=== PATIENT | male | born 1945 | race African-American/Black ===

== ENCOUNTER 2018-01-23 05:35 | Inpatient (IN) | payer MEDICARE ==
[2018-01-23 06:30] LABS: Anion Gap 14 mmol/L (10-20); BUN (Urea Nitrogen) 27 mg/dL (8.4-25.7); Calc. Creatinine Clearance 0 mL/min (70-130); Calcium 9.3 mg/dL (7.8-10.44); Carbon Dioxide 36 mmol/L (23-31); Chloride 93 mmol/L (98-107); Estimated GFR-MDRD 45; Glucose 97 mg/dL (83-110); Sodium 140 mmol/L (136-145)
[2018-01-23 06:37] LABS: CKMB 4.2 ng/mL (0-6.6); Troponin I 0.057 ng/mL (< 0.028)
--- NOTE | 2018-01-23 08:12 | HP ---
PRIMARY CARE PHYSICIAN: Dr. Kamran Velazquez CHIEF COMPLAINT: Shortness of breath. HISTORY OF PRESENT ILLNESS: The history of present illness is taken almost entirely from review of [facility] emergency room records which are limited as well. The patient is currently extremely sleepy and c an only answer 1 or 2 questions before falling back to sleep and therefore it is very difficult to ob tain a history. Mr. Esteban is a 72-year-old gentleman that has a history of hypertension, atrial f ibrillation and chronic systolic heart failure. He had an echo back in 2014 and at that time, his ej ection fraction was 20-25%. He says that on night, he began getting short of breath, the ex act details of which are very limited. He does say that he was having trouble breathing, but says he did not wake up through the night short of breath. He was able to tell me he does have to sleep pro pped up, but he kept falling asleep when I tried to get more details on how many pillows he has to s leep on. He does not endorse any leg swelling. He denies having any chest pain. He denies having a ny palpitations. Other than that, no other history is obtainable. He was evaluated in the emergency room and it was reported that his proBNP was elevated at 1045. Chest x-ray showed cardiomegaly with increased pulmonary vascular markings and he is being admitted for further evaluation and treatment. REVIEW OF SYSTEMS: Unobtainable due to the patient's severe drowsiness. PAST MEDICAL HISTORY: Significant for chronic systolic heart failure, hypertension, atrial fibrillat ion. It is noted in the records that he has refused anticoagulation in the past. It is also noted i n the records that he has refused workup of the heart failure such as cardiac catheterization. Also, there was a mention in the records that he was diagnosed with diabetes mellitus type 2 and had been on metformin. PAST SURGICAL HISTORY: Right femur fracture. ALLERGIES: No known drug allergies. SOCIAL HISTORY: The patient managed to tell me he does not smoke or drink. FAMILY HISTORY: Unknown. MEDICATIONS: These will need to be reconciled. The emergency room records stated amlodipine 10 mg d aily, furosemide 40 mg daily, potassium chloride 10 mEq daily, Coreg 12.5 mg daily, aspirin 81 mg a d ay. PHYSICAL EXAMINATION: GENERAL: He is extremely drowsy, but arousable. He is well-developed, well-nourished. He appears t o be in no acute distress. VITAL SIGNS: Blood pressure was 144/98, heart rate 77, respiratory rate of 18, temperature is 97.7. HEENT: Pupils are equal, round, and reactive. Extraocular muscles are intact. Sclerae are anicteri c. Throat no erythema, no exudates. NECK: No adenopathy, no bruits. LUNGS: He has got bibasilar rales. CARDIOVASCULAR: Heart rate is irregular, heart rhythm is irregular. There were no murmurs, clicks o r rubs. However, the heart sounds are a bit distant. ABDOMEN: Obese, positive for bowel sounds. No tenderness. EXTREMITIES: He has got chronic venous stasis changes. NEUROLOGIC: Difficult to assess, but he is moving all extremities. ASSESSMENT AND PLAN: 1. This is a pleasant 72-year-old gentleman that presents with shortness of breath. I suspect it ma y be multifactorial; 1) due to congestive heart failure exacerbation and I suspect he may have some d egree of obesity hypoventilation syndrome as he is extremely drowsy and I am concerned that he may maldonado ve some hypercapnia as well. He will be admitted to the IMCU as I am concerned that he may require B iPAP, placed on IV Lasix for diuresis. We will get an echocardiogram to assess his current ejection fraction and will need to reconcile his other medications. 2. Atrial fibrillation, currently his rate is controlled once he is more alert, we can verify that petey merida does not want anticoagulation. 3. Possible diabetes mellitus. He will be placed on a sliding scale insulin and we will need to re concile as medications. 4. Hypertension, currently his blood pressure is within reasonable range. Once again, we will need to reconcile as medications and restart his usual antihypertensive medications once these are known. Further recommendations to follow.
[2018-01-23 08:27] LABS: pH, Arterial 7.28 (7.35-7.45)
[2018-01-23 08:28] LABS: Actual Bicarbonate (HCO3a) 39.1 mEq/L (22-28); Base Excess (BEa) 9.2 mEq/L (-2.0 to +3.0); CO2 Tension 84.3 mmHg (35.0-45.0); Calcium, Ionized 1.1 mmol/L (1.12-1.30); Carboxyhemoglobin (COHb) 1.3 gm% (0.0-3.0); Hemoglobin (Hb) 13.1 g/dL (14.0-18.0); O2 Tension (PaO2) 79.2 mmHg (> 70.0); Potassium - ABG Lab 2.9 mmol/L (3.70-5.30)
[2018-01-23 08:30] LABS: Analyzer IN Cardio ER; Puncture Site L.R.
[2018-01-23 08:31] LABS: ALV-art Gradient 15.065 (0-20)
[2018-01-23] MEDS ORDERED: Ondansetron HCl/PF 4 MG/2 ML Vial IVP PRN (09:11)
[2018-01-23] MEDS ORDERED: Acetaminophen 325 MG TAB PO PRN ×2 (09:11→10:19)
[2018-01-23] MEDS ORDERED: Ondansetron ODT 4 MG TAB SL PRN (09:11)
[2018-01-23] MEDS ORDERED: HumaLOG 300 UNITS/3 ML VIAL SC PRN ×2 (10:19)
[2018-01-23] MEDS ORDERED: hydrALAZINE 20 MG/ML VIAL SLOW IVP PRN (10:19)
[2018-01-23] MEDS ORDERED: Dextrose 50% Abboject 50 ML SYRINGE SLOW IVP PRN (10:19)
[2018-01-23] MEDS ORDERED: Mag-Al 1200 mg/1200 mg/30 ML UDCUP PO PRN (10:19)
[2018-01-23] MEDS ORDERED: Dextrose 5% in Water 1,000 ML IV PRN (10:19)
[2018-01-23 10:20] LABS: Troponin I 0.047 ng/mL (< 0.028)
[2018-01-23] MEDS ORDERED: Heparin 5,000 UNITS/ML VIAL SC SCH (10:30)
[2018-01-23] MEDS ORDERED: Famotidine 20 MG TAB PO SCH (10:30)
--- NOTE | 2018-01-23 11:16 | CON ---
DATE OF CONSULTATION: 01/23/2018 HISTORY: Joe Esteban is a 72-year-old gentleman whose history is obtained from talking to his . He normally seeks attention at doctors out of [place]. He presented to the [facility] ER with marked shortness of breath, coughing, generalized anasarca. His states his le gs were swollen. He was coughing whitish sputum, could not breathe. X-ray shows extensive bilateral interstitial infiltrate consistent with congestive heart failure. He says on most days he can walk about 50 feet without getting markedly short of breath. Apparently no history of alcohol or tobacco abuse. Extremely poor historian. Both the , the patient unable to give adequate history. PAST MEDICAL HISTORY: Pertinent for borderline diabetes, takes no treatment, history of congestive h eart failure, atrial fibrillation, hypertension, has had previous cardioversion done in the past in [facility]. PRIMARY CARE PHYSICIAN: Apparently is in [place]. PAST SURGICAL HISTORY: Otherwise a right femur fracture. ALLERGIES: None. MEDICATIONS: A list of medicine from home includes presumably metolazone 5, Lasix 40, Coreg 25, col chicine, Capoten 25, aspirin. He is presently started on Lasix 40 twice a day, hydralazine, insulin. He is on BiPAP. 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 REVIEW OF SYSTEMS: Ten point negative. PHYSICAL EXAMINATION: VITAL SIGNS: His sats are 95% on room air. Pulse 74, respirations 28, sats 92, blood pressure is 14 0/101. CHEST: Chest revealed decreased breath sounds, no wheezing. CARDIAC: Normal S1, S2, no gallops. ABDOMEN: Soft. No masses. IMPRESSION: 1. Acute cardiorespiratory failure. 2. Congestive heart failure. 3. Atrial fibrillation. 4. Renal failure. 5. Obesity. 6. Probably sleep apnea. PLAN: Discontinue BiPAP. Treat as needed. PT and supportive care, neb treatments. We will follow. This is a consultation note, 70 minutes of which 50% spent in direct patient care. Please note his BNP is 1052. PO2 is 79, pCO2 of 84, pH 7.29, on 2 liters nasal O2. Platelet count i s normal. His creatinine was 1.80. We will follow.
[2018-01-23 11:18] LABS: Digoxin Less than 0.15 ng/mL (0.8-2.0)
[2018-01-23] MEDS: cefTRIAXone\\ROCEPHIN 1 GM in Sodium Chloride 0.9% 100 ML IVPB SCH (11:59)
[2018-01-23] MEDS: Furosemide 40 MG/4 ML VIAL SLOW IVP SCH (14:58)
[2018-01-23] MEDS: Heparin 5,000 UNITS/ML VIAL SC SCH ×2 (16:49→20:40)
[2018-01-23] MEDS: guaiFENesin ER 600 MG TAB PO SCH (20:44)
[2018-01-23] MEDS: Carvedilol 25 MG TAB PO SCH (20:44)
[2018-01-23] MEDS: Colchicine 0.6 MG TAB PO SCH (20:44)
[2018-01-24 04:28] LABS: Anion Gap 15 mmol/L (10-20); BUN (Urea Nitrogen) 24 mg/dL (8.4-25.7); Calc. Creatinine Clearance 73 mL/min (70-130); Calcium 8.6 mg/dL (7.8-10.44); Carbon Dioxide 37 mmol/L (23-31); Chloride 93 mmol/L (98-107); Estimated GFR-MDRD 53; Glucose 101 mg/dL (83-110); Sodium 142 mmol/L (136-145)
[2018-01-24 04:31] LABS: Potassium 2.8 mmol/L (3.5-5.1)
[2018-01-24 04:35] LABS: Band 4 % (5-11); Eosinophils 1 % (0-10); Lymphocytes 14 % (21-51); MDiff Complete? YES; Mean Corpuscular HGB CONC 31.8 g/dL (32.0-36.0); Mean Corpuscular Hemoglobin 26.7 pg (27.0-31.0); Mean Corpuscular Volume 83.8 fL (78.0-98.0); Mean Platelet Volume 9.1 fL (7.4-10.4); Monocytes 14 % (0-10); Neutrophil 67 % (42-75); Nucleated RBC 1 % (0); PLT Morphology Comment Appears Adequate; Platelet Count 164 thou/uL (130-400); RBC Distribution Width 15.2 % (11.5-14.5); RBC Morphology Normal; Red Blood Cell (RBC) Count 4.88 mill/uL (4.70-6.10); White Blood Cell (WBC) Count 6.4 thou/uL (4.8-10.8)
[2018-01-24] MEDS ORDERED: Potassium Chloride 20 MEQ TAB PO SCH (05:00)
[2018-01-24] MEDS: Furosemide 40 MG/4 ML VIAL SLOW IVP SCH ×2 (05:20→14:30)
[2018-01-24] MEDS: Amlodipine 10 MG TAB PO SCH (08:09)
[2018-01-24] MEDS: Colchicine 0.6 MG TAB PO SCH ×2 (08:11→20:56)
[2018-01-24] MEDS: Carvedilol 25 MG TAB PO SCH ×2 (08:11→21:29)
[2018-01-24] MEDS: Heparin 5,000 UNITS/ML VIAL SC SCH ×3 (08:12→20:56)
[2018-01-24] MEDS: guaiFENesin ER 600 MG TAB PO SCH ×2 (08:12→20:56)
[2018-01-24] MEDS: Famotidine 20 MG TAB PO SCH (08:12)
[2018-01-24] MEDS: Metolazone 5 MG TAB PO SCH (08:13)
[2018-01-24] MEDS ORDERED: Prevnar 13-Val Conj/PF 0.5 ML SYRINGE IM ONE (09:00)
[2018-01-24 09:52] VITALS: BMI 36.6
--- NOTE | 2018-01-24 10:20 | PDOC.PN ---
- Subjective Encounter Start Date: 01/24/18 Encounter Start Time: 10:17 Mr. Esteban was seen today in follow-up of CHF exacerbation. He is now much more alert. He says he is breathing much better. He admits that he had missed about 2 weeks of all of his medications when he went on a trip to [facility]. When he got back he started back on his medications, but by that time he was coughing and short of breath. He also admits that his Primary Care Provider sent him to have a sleep study about year ago. He did it, and was recommended to use a CPAP machine. He says it was too big, and he does not use it. - Objective Resuscitation Status: Resuscitation Status FULL:Full Resuscitation MAR Reviewed: Yes Vital Signs & Weight: Vital Signs (12 hours) Temp Pulse Resp BP BP Pulse Ox 01/24/18 08:30 98.2 F 102 H 22 H 97 01/24/18 08:09 102 H 131/79 01/24/18 08:01 95 01/24/18 07:58 105 H 24 H 95 01/24/18 07:32 98.2 F 89 22 H 144/94 H 96 01/24/18 04:50 98.3 F 77 25 H 153/88 H 96 01/24/18 02:26 70 19 124/84 94 L 01/24/18 00:19 96 01/24/18 00:17 97.0 F L 63 25 H 138/86 91 L 01/24/18 00:05 75 25 H 92 L 01/24/18 00:04 74 27 H 94 L Weight Admit Weight 270 lb Weight 270 lb 6 oz I&O: 01/23/18 01/24/18 01/25/18 06:59 06:59 06:59 Intake Total 920 Output Total 2100 Balance -1180 Result Diagrams: 01/24/18 03:39 01/24/18 03:39 Additional Labs: Accuchecks 01/24/18 01/23/18 01/23/18 06:03 19:56 17:46 POC Glucose 143 H 109 124 H 01/23/18 10:48 POC Glucose 86 Phys Exam - Physical Examination HEENT: PERRLA Respiratory: no wheezing, no rales, no rhonchi, clear to auscultation bilateral Cardiovascular: RRR, no significant murmur, no rub Gastrointestinal: soft, non-tender, positive bowel sounds Musculoskeletal: no edema + chronic venous stasis changes Neurological: non-focal Dx/Plan (1) Acute on chronic respiratory failure with hypoxia and hypercapnia Code(s): J96.21 - ACUTE AND CHRONIC RESPIRATORY FAILURE WITH HYPOXIA; J96.22 - ACUTE AND CHRONIC RESPIRATORY FAILURE WITH HYPERCAPNIA Status: Acute (2) Afib Code(s): I48.91 - UNSPECIFIED ATRIAL FIBRILLATION Status: Acute (3) Type 2 diabetes mellitus Status: Acute (4) Acute exacerbation of congestive heart failure Code(s): I50.9 - HEART FAILURE, UNSPECIFIED Status: Chronic (5) Hypertension Code(s): I10 - ESSENTIAL (PRIMARY) HYPERTENSION Status: Chronic (6) Morbid obesity Code(s): E66.01 - MORBID (SEVERE) OBESITY DUE TO EXCESS CALORIES Status: Chronic - Plan * Acute on chronic systolic heat failure- continue IV Lasix, and re-started Metolazone * replace potassium as needed * Echo is pending * Sleep Apnea- I encouraged patient to follow-up with sleep study results, and get the CPAP. I explained the risks associated with untreated sleep apnea * AFIB- heart rate is controlled- he has refused anticoagulation * HTN- blood pressure is stable * DM- blood glucose is stable.
[2018-01-24 10:39] LABS: Hemoglobin 12.6 g/dL (14.0-18.0)
--- NOTE | 2018-01-24 14:17 | PRG ---
DATE OF SERVICE: 01/24/2018 SUBJECTIVE: Mr. Esteban this morning awake, alert, responsive. He said he wants to go home. OBJECTIVE: VITAL SIGNS: His sats are 97% on 3 liters. Respirations 22, pulse 102, temperature 98, blood pressu re 144/94. CHEST: Bilateral crackles. CARDIAC: Normal S1, S2. No gallops or masses. LABORATORY DATA: Creatinine 1.57. White count 6000, H&H 13 and 40. IMPRESSION: 1. Respiratory failure. 2. Morbid obesity. 3. Sleep apnea. 4. Chronic obstructive pulmonary disease. 5. Congestive heart failure. PLAN: The patient is clean and ready to go home. He needs ongoing cardiac input, PT and supportive care. Nocturnal CPAP.
[2018-01-24] MEDS: cefTRIAXone\\ROCEPHIN 1 GM in Sodium Chloride 0.9% 100 ML IVPB SCH (20:54)
[2018-01-25 04:56] LABS: #Basophils 0.1 thou/uL (0.0-0.2); #Eosinphils 0.2 thou/uL (0.0-0.7); #Lymphocytes 0.9 thou/uL (1.20-3.40); #Monocytes 0.9 thou/uL (0.11-0.59); #Neutrophils 4.2 thou/uL (1.40-6.50); %Basophils 0.8 % (0.0-1.0); %Eosinophils 2.9 % (0.0-10.0); %Lymphocytes 14.5 % (21.0-51.0); %Monocytes 14.9 % (0.0-10.0); %Neutrophils 66.9 % (42.0-75.0); Hemoglobin 11.6 g/dL (14.0-18.0); Mean Corpuscular HGB CONC 31.8 g/dL (32.0-36.0); Mean Corpuscular Hemoglobin 26.9 pg (27.0-31.0); Mean Corpuscular Volume 84.5 fL (78.0-98.0); Mean Platelet Volume 9.2 fL (7.4-10.4); Platelet Count 155 thou/uL (130-400); RBC Distribution Width 15.1 % (11.5-14.5); Red Blood Cell (RBC) Count 4.32 mill/uL (4.70-6.10); White Blood Cell (WBC) Count 6.3 thou/uL (4.8-10.8)
[2018-01-25 05:03] LABS: BUN (Urea Nitrogen) 23 mg/dL (8.4-25.7); Calc. Creatinine Clearance 69 mL/min (70-130); Calcium 8.7 mg/dL (7.8-10.44); Estimated GFR-MDRD 49; Glucose 105 mg/dL (83-110)
[2018-01-25 05:06] LABS: Potassium 2.9 mmol/L (3.5-5.1)
[2018-01-25 05:12] LABS: Anion Gap 11 mmol/L (10-20); Chloride 88 mmol/L (98-107); Sodium 142 mmol/L (136-145)
[2018-01-25 05:19] LABS: Carbon Dioxide 46 mmol/L (23-31)
[2018-01-25] MEDS: Furosemide 40 MG/4 ML VIAL SLOW IVP SCH (05:35)
[2018-01-25] MEDS ORDERED: Potassium Chloride 20 MEQ TAB PO SCH ×2 (06:00→12:00)
[2018-01-25] MEDS ORDERED: Potassium Chloride 40 MEQ in Sodium Chloride 0.9% 500 ML IVPB SCH (09:00)
--- NOTE | 2018-01-25 09:00 | PDOC.PN ---
- Subjective Encounter Start Date: 01/25/18 Encounter Start Time: 08:58 Mr. Esteban was seen today in follow-up of CHF exacerbation. He was placed back on Bipap this morning. He is drowsy, and can not fully answer my questions. - Objective Resuscitation Status: Resuscitation Status FULL:Full Resuscitation MAR Reviewed: Yes Vital Signs & Weight: Vital Signs (12 hours) Temp Pulse Resp BP Pulse Ox 01/25/18 07:55 82 22 H 93 L 01/25/18 07:03 54 L 20 100 01/25/18 07:00 97.9 F 74 22 H 118/86 100 01/25/18 06:59 100 01/25/18 03:57 98.4 F 74 16 114/86 97 01/25/18 01:12 70 12 91 L 01/25/18 00:00 98.2 F 64 14 125/83 92 L Weight Admit Weight 270 lb Weight 271 lb 7 oz I&O: 01/24/18 01/25/18 01/26/18 06:59 06:59 06:59 Intake Total 920 2050 Output Total 2100 3300 Balance -1180 -1250 Result Diagrams: 01/25/18 04:24 01/25/18 04:24 Additional Labs: Accuchecks 01/25/18 01/24/18 01/24/18 05:34 20:20 16:59 POC Glucose 95 130 H 117 H 01/24/18 10:47 POC Glucose 132 H Phys Exam - Physical Examination HEENT: PERRLA + rhonchi , and rales at the bases Cardiovascular: no significant murmur, irregular Gastrointestinal: soft, non-tender, positive bowel sounds Musculoskeletal: edema present + chronic venous stasis changes, Neurological: non-focal Dx/Plan (1) Acute on chronic respiratory failure with hypoxia and hypercapnia Code(s): J96.21 - ACUTE AND CHRONIC RESPIRATORY FAILURE WITH HYPOXIA; J96.22 - ACUTE AND CHRONIC RESPIRATORY FAILURE WITH HYPERCAPNIA Status: Acute (2) Afib Code(s): I48.91 - UNSPECIFIED ATRIAL FIBRILLATION Status: Acute (3) Type 2 diabetes mellitus Status: Acute (4) Acute exacerbation of congestive heart failure Code(s): I50.9 - HEART FAILURE, UNSPECIFIED Status: Chronic (5) Hypertension Code(s): I10 - ESSENTIAL (PRIMARY) HYPERTENSION Status: Chronic (6) Morbid obesity Code(s): E66.01 - MORBID (SEVERE) OBESITY DUE TO EXCESS CALORIES Status: Chronic - Plan * Acute on chronic systolic heart failure- will continue to diurese, but will need to monitor renal function. Awaiting Echo results * ZOE- he continues to require Bipap, PCCM managing * DM- patient says he is not diabetic- will check a HGBA1C. * HTN- blood pressure is stable * Hypokalemia- continue to replace potassium, and will check a magnesium level
--- NOTE | 2018-01-25 09:22 | RAD ---
PORTABLE CHEST: HISTORY: CHF and shortness of breath. FINDINGS: Cardiomegaly and mild vascular engorgement. Evidence of small effusions. Congestive changes may be slightly improved when compared to 01/23/18. POS: [facility]
[2018-01-25 09:26] LABS: Hemoglobin A1c 6.3 % (4.0-6.0)
[2018-01-25] MEDS: Heparin 5,000 UNITS/ML VIAL SC SCH ×3 (09:26→21:22)
[2018-01-25] MEDS: Amlodipine 10 MG TAB PO SCH (09:26)
[2018-01-25] MEDS: Colchicine 0.6 MG TAB PO SCH ×2 (09:27→21:22)
[2018-01-25] MEDS: Carvedilol 25 MG TAB PO SCH ×2 (09:27→21:22)
[2018-01-25] MEDS: Famotidine 20 MG TAB PO SCH (09:27)
[2018-01-25] MEDS: guaiFENesin ER 600 MG TAB PO SCH ×2 (09:27→21:22)
--- NOTE | 2018-01-25 10:08 | PRG ---
DATE OF SERVICE: 01/25/2018 SUBJECTIVE: This morning, he is otherwise very lethargic. When we saw him, he is arousable. OBJECTIVE: VITAL SIGNS: Sats are 93% on 2 liters, respiration 22, temperature 97, blood pressure 180/86. His I 's and O's are 2050 in and 330 out. CHEST: Reveals decreased breath sounds, no wheezing. CARDIAC: Normal S1, S2, no gallops. ABDOMEN: Soft, no masses. LABORATORY DATA: Potassium 2.9, chloride is 88. Creatinine 1.67. White count is 6000. X-RAY FINDINGS: Chest x-ray shows cardiomegaly, no acute infiltrates. All cultures are negative. IMPRESSION: 1. 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 2. Marked metabolic alkalosis, probably a combination of diuretic and chronic CO2 retention. PLAN: Discontinue Lasix, started Diamox. PT and supportive care. We will follow.
[2018-01-25] MEDS: Metolazone 5 MG TAB PO SCH (10:54)
[2018-01-25] MEDS ORDERED: acetaZOLAMIDE Sodium 500 MG in Sodium Chloride 0.9% 50 ML IVPB SCH (16:30)
[2018-01-25] MEDS ORDERED: AcetaZOLAMIDE 250 MG TAB PO SCH (18:30)
--- NOTE | 2018-01-25 18:38 | CON ---
DATE OF CONSULTATION: 01/25/2018 HISTORY: Joe Esteban is a 72-year-old black male with longstanding history of hypertension, manfred estive heart failure. I did evaluate him when he was hospitalized in 04/2015. He has a longstanding history of chronic atrial fibrillation. Apparently, this discussion was held regarding anticoagulat ion with his band edger in [place] and he declined that. It was also recommended that he undergo c atheterization and he declined that. During that hospitalization, he was diuresed and his ejection f raction was 20%-25% on echo. Again, it was recommended that he be anticoagulated; however, he again declined. Also, we discussed possible catheterization during that admission; however, he again decli vignesh. He continues to follow up with a band edger in [place]. He does have left bundle branch block and I discussed it with him. Apparently, no discussions have e mara been held regarding possible biventricular ICD. He now presents complaining of increased shortne ss of breath, episodes of orthopnea. He denies any chest discomfort. PAST MEDICAL HISTORY: Severe dilated cardiomyopathy; hypertension; chronic atrial fibrillation, refu sing anticoagulation; CVA in the past; history of Phillips's palsy; diabetes. OPERATIONS: Right femoral fracture with operative repair while he was playing football in [place]. MEDICATIONS: Amlodipine 5 mg daily, aspirin 81 daily, captopril 25 mg b.i.d., carvedilol 25 b.i.d., colchicine 0.6 b.i.d., furosemide 40 b.i.d., metolazone 5 mg daily, pantoprazole 40 b.i.d., KCl 20 mE q daily. ALLERGIES: None. SOCIAL HISTORY: He does not smoke or drink. He is retired from working at [employer]. FAMILY HISTORY: Negative for coronary artery disease. REVIEW OF SYSTEMS: Ten-point review of systems is otherwise unremarkable. PHYSICAL EXAMINATION: VITAL SIGNS: Blood pressure 117/81, pulse of 83 and irregularly irregular. HEENT: PERRL. NECK: Supple. CHEST: Crackles at the bases. CARDIOVASCULAR: S1, S2 normal without any S3, S4, or murmur. ABDOMEN: Normal bowel sounds without tenderness. EXTREMITIES: Revealed 1 to 2+ pretibial edema. NEUROLOGIC: Grossly intact. SKIN: Warm and dry. LABORATORY DATA: EKG revealed atrial fibrillation with left bundle branch block, occasional PVCs. H emoglobin 11.6, hematocrit 36.5, white count 6300, platelets 155,000. PH 7.28, pCO2 of 84.3, pO2 of 72.9. Sodium 142, potassium 2.9, chloride 88, carbon dioxide 42, BUN 23, creatinine 1.67. Digoxin l evel is less than 0.15. Echocardiogram revealed severe left ventricular dysfunction with ejection fr action of 20%-25%, moderate left atrial enlargement, moderate mitral regurgitation. IMPRESSION: 1. Respiratory failure, hypercapnia. 2. Severe left ventricular dysfunction. 3. Chronic atrial fibrillation. 4. Hypertension. 5. History of obstructive sleep apnea. 6. Left bundle branch block. 7. History of cerebrovascular accident. 8. Renal insufficiency. PLAN: Captopril has been discontinued as well as diuretics. We will continue neb treatments. We di d discuss possible biventricular ICD placement; however, as with everything else that has been discus sed with him, he does not wish to pursue that.
[2018-01-26 04:26] VITALS: TEMP 97.8
[2018-01-26 07:27] VITALS: BP 121/76
[2018-01-26] MEDS: Amlodipine 10 MG TAB PO SCH (08:00)
[2018-01-26] MEDS: guaiFENesin ER 600 MG TAB PO SCH (08:01)
[2018-01-26] MEDS: Heparin 5,000 UNITS/ML VIAL SC SCH (08:01)
[2018-01-26] MEDS: Famotidine 20 MG TAB PO SCH (08:01)
[2018-01-26] MEDS: Carvedilol 25 MG TAB PO SCH (08:01)
[2018-01-26] MEDS: Colchicine 0.6 MG TAB PO SCH (08:04)
--- NOTE | 2018-01-26 08:04 | PRG ---
DATE OF SERVICE: 01/26/2018 Mr. Esteban this morning is a little bit more responsive. His is at the bedside. PHYSICAL EXAMINATION: VITAL SIGNS: His pulse is 77, temperature 97, respiration 20, sats are 100% on 3 liters, blood press ure 121/76. Yesterday, according to the nurses he was trying to sign AMA. This morning he insists on going to [facility]. He has an appointment to see a revenue cycle specialist there. His ejection fraction is only 25%. Yeste rday his bicarbonate was markedly elevated, it was 46. His medicines were adjusted and he was started on Diamox. CHEST: Otherwise, on examination chest revealed decreased breath sounds, no wheezing. CARDIAC: Normal S1, S2. ABDOMEN: Soft, no masses. IMPRESSION: 1. Congestive cardiomyopathy. 2. Renal failure. 3. Diabetes. 4. Sleep apnea. 5. Marked metabolic alkalosis. PLAN: He has no IV access. Once again, Dr. Ruiz, revenue cycle specialist saw him. He needs a dual chamber AICD, which he declined at this time. The patient is probably going to leave against medical advice, but I told his that he clearly ne eds to proceed with a cardiac input right away when he leaves the hospital and get a sleep study done . Long-term prognosis is grave.
[2018-01-26 08:30] LABS: BUN (Urea Nitrogen) 23 mg/dL (8.4-25.7); Calc. Creatinine Clearance 72 mL/min (70-130); Calcium 9.4 mg/dL (7.8-10.44); Estimated GFR-MDRD 52; Glucose 100 mg/dL (83-110)
[2018-01-26 08:39] LABS: Anion Gap 20 mmol/L (10-20); Carbon Dioxide 37 mmol/L (23-31); Chloride 89 mmol/L (98-107); Potassium 3.2 mmol/L (3.5-5.1); Sodium 143 mmol/L (136-145)
[2018-01-26] MEDS ORDERED: AcetaZOLAMIDE 250 MG TAB PO SCH (09:00)
[2018-01-26] MEDS ORDERED: acetaZOLAMIDE Sodium 500 MG in Sodium Chloride 0.9% 50 ML IVPB SCH (09:00)
--- NOTE | 2018-01-27 01:16 | DIS ---
DATE OF ADMISSION: 01/23/2018 DATE OF DISCHARGE: 01/26/2018 PRIMARY CARE PHYSICIAN: Dr. Kamran Velazquez. DISCHARGE DISPOSITION: Home. PRIMARY DISCHARGE DIAGNOSES: 1. Acute on chronic respiratory failure with hypoxemia and hypercapnia. 2. Acute on chronic systolic heart failure. 3. Exacerbation of obstructive sleep apnea. 4. Atrial fibrillation. 5. Diabetes mellitus, type 2. 6. Obesity. DISCHARGE MEDICATIONS: The patient left AMA. Therefore, it is assumed that he would continue his pr evious medicines. He had been taking Lasix 40 mg twice a day, aspirin 81 mg daily, K-Dur 20 mEq eva y, Protonix 40 mg twice a day, Zaroxolyn 5 mg daily, Mucinex 600 mg twice a day, colchicine 0.6 mg tw ice daily, carvedilol 25 mg twice a day, captopril 25 mg twice a day, and amlodipine 5 mg daily. PROCEDURES DONE DURING ADMISSION: The patient had an echocardiogram in which his ejection fraction w as estimated at 20-25%. There was left atrium dilatation, moderate mitral regurgitation. CODE STATUS: FULL CODE. ALLERGIES: No known drug allergies. HOSPITAL COURSE: Mr. Esteban is a pleasant 72-year-old gentleman who was admitted to the hospital a fter he had difficulty breathing. He was found to be in acute on chronic respiratory failure. He wa s both hypoxic and hypercapnic. His pCO2 was in the 80s on presentation and had to be placed on BiPA P initially. He was found to be noncompliant with both medications as well as BiPAP. He had been ou t of town and did not bring his medications with him and as such had been without all medications for approximately 2 weeks, this likely precipitated the CHF exacerbation. He was brought in the [facility] and diuresed and improved. He was also instructed to follow up with obtaining the CPAP machine. H e apparently had been sent by his primary care physician to be evaluated for sleep apnea. He had don e the sleep study and did not order that the CPAP machine. He told me that he did not want it becaus e it was too big and cumbersome. He had told the nursing staff that he could not afford the copay. Nevertheless, he never got the CPAP machine. He also was seen by Cardiology while he was here, his e jection fraction was below 30 and as a result, he is recommended to have an AICD. He refused this du ring this hospital stay and stated he wanted to see his regular civil structural designer to make this decision. He was not really felt to be an ideal candidate for discharge as a CO2 level was still elevated and i deally we would have done more to treat his heart failure; however, the patient decided to leave [facility] medical advice on 01/26/2018.
--- NOTE | 2018-01-28 12:44 | EKG ---
Test Reason : Blood Pressure : / mmHG Vent. Rate : 070 BPM Atrial Rate : 326 BPM P-R Int : 000 ms QRS Dur : 162 ms QT Int : 488 ms P-R-T Axes : 000 -28 132 degrees QTc Int : 527 ms Atrial fibrillation with premature ventricular or aberrantly conducted complexes Left bundle branch block Abnormal ECG Confirmed by JASON THIBODEAUX D.O. ([id number]), editor at large MARIETTA WARE ([id number] on 01/28/2018 12:44:09 PM Referred By: Confirmed By:JASON THIBODEAUX D.O.
== END 2018-01-26 10:20 | disposition left against medical advice (07) | DRG 291 ==
LOC: ERS 05:35 → IMCU/EMU 08:58
PROVIDERS: ADMIT Internal Medicine; ATTEND Internal Medicine
PROC: 5A09357 Assistance with Respiratory Ventilation, Less than 24 Consecutive Hours, Continuous Positive Airway Pressure (ICD-10-PCS; principal; 2018-01-23)
DX: I11.0 Hypertensive heart disease with heart failure (principal); J96.22 Acute and chronic respiratory failure with hypercapnia; J96.21 Acute and chronic respiratory failure with hypoxia; E66.2 Morbid (severe) obesity with alveolar hypoventilation; E87.3 Alkalosis; I50.23 Acute on chronic systolic (congestive) heart failure; E11.9 Type 2 diabetes mellitus without complications; Z68.36 Body mass index [BMI] 36.0-36.9, adult; I48.2 Chronic atrial fibrillation; I42.0 Dilated cardiomyopathy; G51.0 Bell's palsy; Z79.82 Long term (current) use of aspirin; Z86.73 Personal history of transient ischemic attack (TIA), and cerebral infarction without residual deficits
CPT/HCPCS: 36415; 36416; 71045; 80048; 80162; 82553; 82805; 83036; 83735; 83880; 85025; 93005; 93306; 93798; 94640; 94660; G8978-GP-CI; G8979-GP-CI; G8980-GP-CI; J0696; J1120; J1644; J1940; J3480; J7050; J7620